=== PATIENT | female | born 1955 | race Caucasian/White ===

== ENCOUNTER 2019-06-26 09:55 | Observation (INO) | payer BC ==
[~2019-06-26] VITALS: Ht 162.6 cm; Wt 79.8 kg
[2019-06-26] MEDS ORDERED: SYNTHROID100 MCG PO (12:18)
[2019-06-26] MEDS ORDERED: ASPIR 8181 MG PO (12:19)
--- NOTE | 2019-06-26 15:47 | NUR ---
PT APPEARS TO BE SLEEPING AT THIS TIME, HELD OFF VISITORS AT THIS TIME.
--- NOTE | 2019-06-26 16:06 | NUR ---
MEDICATED WITH 650MG TYLENOL PO AT THIS TIME FOR MOHAN DUE TO COUGHING.
--- NOTE | 2019-06-26 16:37 | NUR ---
pt ambulated to the bathroom some sob noted with this activity, back to bed remains on 1l via nc at this time. spo2 94%.
--- NOTE | 2019-06-26 17:49 | EKG ---
[facility] [address] [facility] [place] [address] Signed Normal sinus rhythm Possible Left atrial enlargement Cannot rule out Anterior infarct , age undetermined Abnormal ECG No previous ECGs available Confirmed by RUTH ANN RAMIREZ MD ([id number]) on 06/26/2019 5:49:30 PM Electronically Signed By: RUTH ANN RAMIREZ MD 06/26/19 1749 PATIENT NAME: PARAMJIT NIELSON SATISH Electrocardiogram DATE OF : 53 PHYSICIAN: RUTH ANN RAMIREZ MD REPORT #: [id number] REPORT IS CONFIDENTIAL AND NOT TO BE RELEASED WITHOUT AUTHORIZATION
--- NOTE | 2019-06-26 18:13 | NUR ---
PT IS COUGHING LESS WITH THE MUCINEX. PT CONTIOUES TO WORK ON EATTING DINNER AT THIS TIME, AND IS WATCHING TV AT THIS TIME. HAS NO C/O'S AT THIS TIME.
--- NOTE | 2019-06-26 18:29 | NUR ---
COUGHING HAS INCREASED THEREFORE ROBITUSSIN GIVEN AT THIS TIME. PT CONTIOUES TO WORK ON EATTING HER DINNER.
--- NOTE | 2019-06-26 19:51 | NUR ---
SHIFT REPORT RECEIVED FROM MONIQUE BRAR. IN TO CHECK IN ON PT AT THIS TIME AND REVIEW PLAN OF CARE FOR TONIGHT. PT DENIES NEEDS AT THIS TIME, WILL CONTINUE TO MONITOR.
--- NOTE | 2019-06-26 20:42 | NUR ---
ASSESSMENT COMPLETED, SEE-DOCUMENTATION. SCHEDULED EVENING MEDICATIONS, DISCUSSED PLAN FOR PRN MEDICATIONS FOR COUGH AND HEADACHE. PT REMAINS ON 1L O2 VIA NC. LUNG SOUNDS COARSE, WHEEZES NOTED, WILL COORDINATE CARE WITH R.T. FOR NEBS. PT HAS FINISHED WITH HER DINNER, ATE ~50%. DENIES NEEDS AT THIS TIME, CALL LIGHT WITHIN REACH.
--- NOTE | 2019-06-26 22:05 | NUR ---
PRN MEDICATIONS GIVEN FOR COUGH, HEADACHE, AND SLEEP. PT UP TO BATHROOM WI SBA, VOIDED 250ML AND RETURNED TO BED. SHE DENIES FURTHER REQUESTS AT THIS TIME, CALL LIGHT REMAINS WITHIN REACH.
--- NOTE | 2019-06-27 00:38 | NUR ---
ASSESSMENT COMPLETED-SEE DOCUMENTATION. PT STATES HER HEADACHE PAIN IS IMPROVED SINCE RECEIVING TYLENOL. LUNG SOUNDS REMAIN COARSE WITH EXPIRATORY WHEEZES ON THE RIGHT SIDE, 1L O2 VIA NC IN PLACE. PT AMBULATED TO BATHROOM WITH SBA TO VOID AND RETURNED TO BED. PT SOB WITH ACTIVITY. DISCUSSED PLAN FOR PRN COUGH MEDICATIONS. PT DENIES FURTHER REQUESTS AT THIS TIME. CALL LIGHT WITHIN REACH.
--- NOTE | 2019-06-27 04:40 | NUR ---
ASSESSMENT COMPLETED-SEE DOCUMENTATION. PT REPORTS 6/10 HEADACHE PAIN, PRN TYLENOL GIVEN. DISCUSSED PLAN FOR PRN COUGH MEDICINE AT 0600. PT UP TO BATHROOM WITH SBA TO VOID AND THEN BACK TO BED. PT REPORTS SOB WITH ACTIVITY. BREATHING TREATMENT REQUESTS, R.T. NOTIFIED. IV REMAINS PATENT, INFUSING WNL. FRESH ICE WATER PROVIDED, NO FURTHER REQUESTS AT THIS TIME.
--- NOTE | 2019-06-27 08:31 | NUR ---
PT AMBULATED TO BATHROOM ON HER OWN, DID WELL WITH THIS PROCESS, BUT CONTIOUES TO BE SOB SITTING AT EDGE OF BED TO CATCH HER BREATH.
--- NOTE | 2019-06-27 09:29 | NUR ---
PT HAD EMINES ABOUT 200MLS ZOFRAN 4MG IVP GIVEN, PT HAVING EMINES DUE TO COUGHING.
--- NOTE | 2019-06-27 12:08 | NUR ---
PT SITTING UP IN THE CHAIR AT THIS TIME, TRYING TO EAT LUNCH. SON AT THE BEDSIDE.
--- NOTE | 2019-06-27 13:03 | NUR ---
PT HAS BEEN UP IN THE CHAIR EATTING LUNCH, KATTY-FAIR SO FAR AND THEN UP TO BATHROOM FOR ADLS.
--- NOTE | 2019-06-27 14:20 | NUR ---
PT WAS UP IN THE CHAIR DID HER OWN ADLS AND THEN BACK TO BED. KEN YBARRA GIVEN. AND PT IS WANTING TO TAKE A NAP.
--- NOTE | 2019-06-27 17:41 | NUR ---
PT SITTING UP IN THE CHAIR AT THIS TIME, EATING DINNER AT THIS TIME.
--- NOTE | 2019-06-27 18:27 | NUR ---
PT BACK TO BED. KATTY-DINNER AT THIS TIME.
--- NOTE | 2019-06-27 19:30 | NUR ---
REPORT RECIEVED FROM CCU RN, CARE OF PATIENT ASSUMED AT THIS TIME.
--- NOTE | 2019-06-27 19:32 | NUR ---
PT REPORT RECIEVED FROM CCU RN, CARE OF PATIENT ASSUMED AT THIS TIME.
--- NOTE | 2019-06-27 20:00 | NUR ---
IN ROOM FOR ASSESSMENT. PT STATES SHE IS FEELING BETTER THAN SHE DID THIS AM. STATES COUGH HAS BECOME LESS FREQENT. LUNGS SOUND COARSE THROUGHOUT WITH SCATTERED EXPIRATORY WHEEZES. PLAN OF CARE FOR EVENING DISCUSSED. CALL LIGHT WITH REACH. NO FURTHER NEEDS AT THIS TIME.
--- NOTE | 2019-06-27 21:00 | NUR ---
IN ROOM FOR MEDICATION ADMINSITRATION. PT GIVEN PRN MEDICATION FOR COUGH (SEE EMAR). PLAN TO GIVE SLEEPING PILL AT 2200. WATER REFILLED, CALL LIGHT WITHIN REACH, NO FURTHER NEEDS AT THIS TIME.
--- NOTE | 2019-06-27 23:00 | NUR ---
PATIENT APPEARS TO BE SLEEPING SOUNDLY. O2 SAT >95% ON ROOM AIR.
--- NOTE | 2019-06-28 02:25 | NUR ---
PATIENT PROVIDED WITH PRN TYLENOL FOR HEADACHE PAIN 10/10. ALSO PROVIDED WITH COUGH MEDICATION. PATIENT DENIES OTHER NEEDS. RESTING IN BED. CALL LIGHT IN REACH.
--- NOTE | 2019-06-28 06:51 | NUR ---
PATIENT PROVIDED WITH MORNING MEDS. TITRATED TO ROOM AIR. LUNGS ARE CLEAR. CONTINUES TO HAVE DRY COUGH WITH OCCATIONAL SPUTUM PRODUCTION. PATIENT REPORTS IMPROVED MOHAN. VS STABLE. NO NAUSEA AT THIS TIME. BREAKFAST ORDER RECEIVED.
--- NOTE | 2019-06-28 08:06 | NUR ---
Recieved Pt report from medical appointment clerk. Pt is alert and oriented sitting in her chair. Assessment completed. Lung manriquez clear to ascultation, cough congested/dry. Pt eating breakfast in her chair, call light within reach will continue to monitor.
--- NOTE | 2019-06-28 08:36 | NUR ---
Pt morning medications given, Pt requested a shower, sitting in chair eating breakfast , call light within reach will continue to monitor.
--- NOTE | 2019-06-28 08:42 | NUR ---
PATIENT SITTING UP IN THE CHAIR RELAXING AND EATING BREAKFAST AT THIS TIME. BLINDS OPENED FOR PATIENT PER REQUEST. MEDICATIONS GIVEN. VITALS COMPLETED. ASSESSMENT DONE. PATIENT HAS AN EXP WHEEZE IN LOWER RIGHT LOBE. PRN COUGH MEDICINE PROVIDED. WILL CONTINUE TO CLOSELY MONITOR.
--- NOTE | 2019-06-28 09:40 | NUR ---
Spoke with Macy. She denies needs to go home. She does not have a nebulizer and I will notify Dr. Washington. Pt states pneumonia has taken it out of her.
--- NOTE | 2019-06-28 10:00 | NUR ---
Pt is resting in bed, 0900 abx given, Pt will shower after IV fluids completed. Guardrails are up, call light within reach will continue to monitor.
--- NOTE | 2019-06-28 10:59 | NUR ---
Pt in bed engaging in coranet breathing excerises. Pt appears SOB w/exertion while using the coranet and talking. Pt went to [facility] w/[facility]UER to shower in rm 125. Lunch has been ordered. Will continue to monitor when Pt returns to CCU.
--- NOTE | 2019-06-28 11:28 | NUR ---
PATIENT BACK FROM THE SHOWER WITH FIRER LOCOMOTIVE CRANE. PATIENT TOELRATED WELL. BEDDING CHANGED. LUNCH ORDERED. PATIENT CONTINUES WITH OCCASIONAL COUGH. WILL CONTINUE TO CLOSELY MONITOR.
--- NOTE | 2019-06-28 11:30 | NUR ---
MD Washington at Pt bedside. is going to keep Pt another day for observation, Pt Sp02 decreased to 90% after shower. Pt report exhaustion and SOB. RUL-FENG/Clear, RLL-LLL/inspiratory wheezes w/asculation. Felix requested to continue Pt on IV abx. and neb tx. Assessment completed. Pt SOB while talking. Resting in bed guardrails are up, call light is within reach, Pt eating lunch, will continue to monitor.
--- NOTE | 2019-06-28 13:52 | NUR ---
PATIENT WAS ADMITTED AT HIGH RISK FOR MALNUTRITION DUE TO RECENT POOR APPETITE DUE TO NOT FEELING WELL. SHE HAS BEEN TAKING MY WEIGHT MANAGEMENT CLASS AND HAS BEEN WORKING ON EATING HEALTHIER AND EXERCISING OVER THE PAST YEAR. BMI 30. PATIENT ON REGULAR DIET. NO FURTHER INTERVENTIONS AT THIS TIME.
--- NOTE | 2019-06-28 14:15 | NUR ---
Pt SCD's where taken off Pt ambulated to the [facility], Pt requested the SCD's not be put back on when she return bed. Pt is resting in bed, guardrails up, call light within reach. Will continue to monitor.
--- NOTE | 2019-06-28 15:51 | NUR ---
PATIENT RESTING IN BED TAKING A NAP AT THIS TIME. PATIENT SPO2 95% ON RA. WILL CONTINUE TO CLOSELY MONITOR.
--- NOTE | 2019-06-28 17:43 | NUR ---
Pt is sitting in her chair eating dinner, she reports feeling alot better than she did the previous evening and feels like she can eat her meal tonight, 1600 assessment completed. RUL/FENG clear , RLL/LLL-inspiratory and exspiratory wheezes. Call light is within reach will continue to monitor.
--- NOTE | 2019-06-28 20:46 | NUR ---
O2 MONITOR NOT READING. FIXED. pt RESTING IN BED. STATED SHE WAS "DONING WELL, I JUST FINISHED A BREATHING TREATMENT" NO REQUESTS AT THIS TIME. UPDATED ON PLAN OF CARE. CALL LIGHT WITHIN REACH. WHITEBOARD UPDATED.
--- NOTE | 2019-06-28 21:13 | NUR ---
ASSESSMENT DONE, MEDICATION GIVEN (SEE MAR). pt REQUESTED THAT HER PRN MEDICATIONS BE GIVEN AT 2200. pt REPORTED SOB WHEN AMBULATING. PROVIDED ICE CHIPS. NO FURTHER REQUESTS AT THIS TIME. CALL LIGHT WITHIN REACH.
--- NOTE | 2019-06-28 22:07 | NUR ---
PRN MEDICATIONS GIVEN (SEE MAR). NO FURTHER REQUESTS AT THIS TIME. CALL LIGHT WITHIN REACH.
--- NOTE | 2019-06-28 23:49 | NUR ---
pt UP TO VOID. REQUESTED PRN MED, GIVEN (SEE MAR). NO FURTHER REQUESTS AT THIS TIME. CALL LIGHT WITHIN REACH.
--- NOTE | 2019-06-29 02:28 | NUR ---
ROUNDED ON pt. RESTING WITH EYES CLOSED, RESPIRATIONS REGULAR. CALL LIGHT WITHIN REACH.
--- NOTE | 2019-06-29 03:55 | NUR ---
pt UP TO VOID, INDEPENDENT IN ROOM. CALL LIGHT WITHIN REACH.
--- NOTE | 2019-06-29 05:39 | NUR ---
VITALS AND I&O RECORDED. ASSESSMENT DONE. IMPROVEMENT IN LUNG SOUNDS FROM PRIOR ASSESSMENT. WATER AND ICE PROVIDED. MEDICATIONS GIVEN (SEE MAR). NO FURTHER REQUESTS AT THIS TIME. CALL LIGHT WITHIN REACH.
--- NOTE | 2019-06-29 08:00 | NUR ---
Report recieved by shift superintendent caustic cresylate. Pt resting in bed. Reports she had a good night and slept well. Assessment completed. Upper and lower lungs sounds coarse. Breakfast has been ordered, Pt amubualted to her chair independrntly. Call light is within reach , will continue to monitor.
--- NOTE | 2019-06-29 09:00 | NUR ---
PATIENT UP AND AWAKE THIS AM. PATIENT DENIES ANY COUGH MEDICATIONS AT THIS TIME. ASSESSMENT COMPLETED. NO OTHER NEEDS AT THIS TIME.
[2019-06-29] MEDS ORDERED: CEFPODOXIME PR200 MG PO (10:05)
[2019-06-29] MEDS ORDERED: BENZONATATE100 MG PO (10:05)
[2019-06-29] MEDS ORDERED: GUAIFEN-CODEINE10 ML PO (10:07)
[2019-06-29] MEDS ORDERED: LC D NEBULIZER1 EAC1 MISC (10:10)
[2019-06-29] MEDS ORDERED: ALBUTEROL2.5 MG/3 M INH (10:11)
--- NOTE | 2019-06-29 10:32 | NUR ---
Pt is dressed and ready for discharge. Requested her IV be removed. IV was Dc'd and intact. MD EDWARDS prepared discharge orders. Pt sitting in chair call light with in reach , will continue to monitor.
--- NOTE | 2019-06-29 10:37 | NUR ---
DR EDWARDS WROTE ORDER FOR PT TO HAVE A NEBULIZER. SPOKE WITH PT, SHE STATES SHE WOULD LIKE TO GET THE NEBULIZER FROM [facility]. FAXED CHART NOTES TO [facility]. SENT FACESHEET, ORDER, H AND P, PROG NOTES. RECEIVED FAX CONFIRMATION. 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
--- NOTE | 2019-06-29 10:45 | NUR ---
PATIENT READY TO DISCHARGE HOME. APPOINTMENT MADE FOR PATIENT FOR FOLLOW-UP. WORK RELEASE GIVEN TO PATIENT. NO OTHER NEEDS AT THIS TIME. WILL CONTINUE TO CLOSELY MONITOR.
--- NOTE | 2019-06-29 11:20 | NUR ---
PATIENT DISCHARGED HOME WITH FAMILY. ALL BELONGINGS GATHERED AND SENT WITH PATIENT. PATIENT WHEELED OUT OF UNIT WITH STAFF MEMBER. ALL DISCHAGE EDUCATION REVIEWED. MEDICATIONS SENT TO THE PHARMACY AND ORDER FOR A NEBULIZER WAS SENT BY CASE MANAGEMENT. NO FURTHER QUESTIONS. IV DCD WITH NO ISSUES.
--- NOTE | 2019-06-29 11:38 | NUR ---
Pt education was given to Pt upon discharge. Pt agreed to follow-up with tx recommedations, follow up appointment made with Pt's PCP 07/05/19. Pt's son w/her during discharge.
--- NOTE | 2019-06-29 11:57 | NUR ---
PT DRESSED, SITTING IN CHAIR,WAITING FOR HER SON TO TAKE HER HOME. PT MENTIONED THAT SHE IS FEELING MUCH BETTER AND THAT SHE HAS HAD A GOOD EXPERIENCE WITH ALL PHASES OF HER CARE WHILE AT [facility]. GAVE PT A G.POST EXTENDED A BLESSING. WILL FOLLOW NEEDED
== END 2019-06-29 11:20 | disposition home or self-care (01) ==
LOC: ED 09:55 → CCU 09:56
PROVIDERS: ADMIT Internal Medicine
DX: J18.9 Pneumonia, unspecified organism (principal); J98.01 Acute bronchospasm; E03.9 Hypothyroidism, unspecified; Z88.8 Allergy status to other drugs, medicaments and biological substances; Z79.82 Long term (current) use of aspirin; Z79.899 Other long term (current) drug therapy
CPT/HCPCS: 36415; 71046; 80048; 80053; 83605; 83880; 84484; 85025; 85379; 87040; 93005; 93010; 94640; 94667; 94668; 94760; 96366; 96374; 96376; 99285-25; G0378; J0456; J0696; J2405; J7030; J7060

== ENCOUNTER 2021-01-20 10:15 | Emergency (ER) | payer BC ==
[~2021-01-20] VITALS: Ht 162.6 cm; Wt 79.8 kg
[~2021-01-20 10:15] MED LIST: ALBUTEROL2.5 MG/3 M INH; ASPIR 8181 MG PO; BENZONATATE100 MG PO; CEFPODOXIME PR200 MG PO; GUAIFEN-CODEINE10 ML PO; LC D NEBULIZER1 EAC1 MISC; SYNTHROID100 MCG PO
[2021-01-20] MEDS ORDERED: PROMETH-CODEIN 65 ML PO (15:17)
--- NOTE | 2021-01-21 02:21 | EKG ---
[facility] [address] [facility] [place], [place] [address] Signed Normal sinus rhythm Septal infarct (cited on or before 26-JUN-2019) Abnormal ECG When compared with ECG of 26-JUN-2019 10:01, No significant change was found Confirmed by BRODIE EDWARDS MD ([id number]) on 01/21/2021 2:21:30 AM Electronically Signed By: BRODIE EDWARDS MD 01/21/21220 PATIENT NAME: PARAMJIT NIELSON SATISH Electrocardiogram DATE OF : 53 PHYSICIAN: BRODIE EDWARDS MD REPORT #: [id number] REPORT IS CONFIDENTIAL AND NOT TO BE RELEASED WITHOUT AUTHORIZATION
== END 2021-01-20 15:20 | disposition designated cancer center or children's hospital (05) ==
LOC: ED 10:15
DX: U07.1 COVID-19 (principal); G47.30 Sleep apnea, unspecified; Z88.8 Allergy status to other drugs, medicaments and biological substances; Z79.899 Other long term (current) drug therapy
CPT/HCPCS: 71045; 80053; 83690; 83735; 84484; 85025; 93005; 93010; 99285-25; C9803; M0243; Q0244; U0003

== ENCOUNTER 2024-12-28 05:49 | Day surgery (SDC) | payer BC ==
[~2024-12-28] VITALS: Ht 162.6 cm; Wt 78.0 kg
[~2024-12-28 05:49] MED LIST changes: +HYDROCODON-ACE1 EA10 PO; +LACTATED RINGER'S 1,000 ML IV SCH; +PENICILLIN V P500 MG PO; +PROMETH-CODEIN 65 ML PO
[2024-12-28 06:00] VITALS: BP 137/76
[2024-12-28] MEDS ORDERED: IBLOOD GLUCOSE TEST STRIP 1 EA TEST VI PRN (07:00)
[2024-12-28] MEDS ORDERED: LIDOCAINE HCL 1% 5 ML SDV INJ ONE (07:00)
[2024-12-28] MEDS ORDERED: LIDOCAINE HCL 2% 5 ML SDV ONE (07:03)
[2024-12-28] MEDS ORDERED: KETOROLAC TROMETHAMINE 30 MG/ML VIAL ONE (07:57)
--- NOTE | 2024-12-28 08:27 | NUR ---
12/28/24 0827 Armond Paul 0819: PT ARRIVED TO PACU VIA STRETCHER. PT NON AROUSABLE AT THIS TIME. PT ON 2L NC SATS IN THE HIGH 90'S.
[2024-12-28 08:47] VITALS: BP 107/81
--- NOTE | 2024-12-30 14:10 | OR ---
[facility] [address] [place], [place] [address] Signed DATE OF OPERATION: 12/28/2024 SURGEON: Nikko Perales MD PREOPERATIVE DIAGNOSES: 1. History of Patel-en-Y gastric bypass. 2. History of recurrent severe diverticulitis and concurrent urinary tract infection. POSTOPERATIVE DIAGNOSES: 1. Normal upper endoscopy including gastric pouch and Patel limb. 2. Diverticular changes of sigmoid and left colon and small polyp of rectum. PROCEDURES: 1. Upper endoscopy including evaluation of Patel-en-Y limb. 2. Total colonoscopy to cecum with cold morcellation polypectomy x1 and biopsy of rectum. ANESTHESIA: Intravenous sedation, propofol infusion, Daphne Lucas CRNA. 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 She is a patient of TAISHA Yuen. She is referred for a colonoscopy following treatment for significant diverticulitis episode. She does have concurrent other problems including underlying bladder prolapse problem, probable cystocele, and recurrent urinary tract infections. She is uncertain as to having had pneumaturia; notably, she has had hysterectomy in the past. A CT scan performed at [facility] dated October 31, 2024 showed findings of hysterectomy from the past, moderate bladder wall thickening and perivesicular fat and stranding and showing sigmoid diverticulosis with fat stranding and an inflamed distal sigmoid with diverticulitis. There was no evidence of air in the bladder on that evaluation. Additionally, the patient has had cholecystectomy in the past and has had gastric bypass operation (Patel-en-Y gastric bypass). She does not have dysphagia. Does have some dyspepsia from time to time. She is admitted at this time to undergo upper endoscopy and colonoscopy. She understands the risk of bleeding, infection, perforation. FINDINGS: Upper endoscopy showed normal esophagus and gastric pouch remnant. There was no sign of peristomal ulceration or stricture. Biopsies were taken of the stomach for both CHALINO and pathologic testing. Retroflexed view showed a poor flap valve. The esophagus itself Electronically Signed By: NIKKO PERALES MD 12/30/24 1410 PATIENT NAME: PARAMJIT NIELSON OPERATIVE REPORT DATE OF : 53 REPORT #: [id number] PHYSICIAN: NIKKO PERALES MD PCP: SUKHDEEP KEMP PAC REPORT IS CONFIDENTIAL AND NOT TO BE RELEASED WITHOUT AUTHORIZATION [facility] [address] [place], [place] [address] Signed showed no sign of esophagitis. On colonoscopy, the prep was good. Complete colonoscopy was undertaken of the cecum. There was a small polyp of the rectum, which was excised. Dense diverticular changes were noted of the sigmoid. Her colon was somewhat "stiff." It is noted. There were no findings of concern otherwise. DESCRIPTION OF PROCEDURE: The patient was brought to the endoscopy suite and placed in lateral decubitus position, given intravenous sedation with propofol infusional technique. A bite block was placed. An Olympus video upper endoscope was passed in the hypopharynx. The vocal cords were normal. The scope was easily passed in the esophagus throughout its length and it was normal. Scope entered the gastric pouch, which was small as would be expected. The gastrojejunal anastomosis was widely patent. The jejunal limb was passed a reasonable distance showing no sign of angulation deformity, stricture or other problem. The scope was withdrawn and biopsies taken of the gastric pouch for both CHALINO and pathologic testing. Retroflexed view showed a somewhat loose flap valve, but no other abnormality otherwise. The scope was withdrawn. A biopsy was taken of the distal esophagus in the mid esophagus. Scope was then withdrawn and removed. Plans were then made for colonoscopy. Digital rectal examination was normal. An Olympus video colonoscope was passed in the rectum and manipulated into the sigmoid, which had dense diverticular changes. Passage through this area was slightly challenging, though there was no acute inflammation that could be seen. Various maneuvers were made to pass beyond the sigmoid, ultimately to the cecum. Ileocecal valve and appendiceal orifice were normal. The scope was withdrawn from that point and examination throughout showed no sign of abnormality until the left colon where diverticular changes were seen once again. The area within the sigmoid was once again viewed showing no sign of acute inflammation or actual stricture, though the area appeared stiffened. The scope was withdrawn in the rectum. A small polyp was noted. This was excised with cold morcellation technique. A biopsy was taken of the normal-appearing rectum as reference for occult inflammation or not. The patient was taken to the recovery room in good condition. CONCLUDING DIAGNOSES: 1. Essentially normal upper endoscopy. 2. Diverticular changes of the sigmoid and small polyp of rectum. PLAN: Would recommend repeat colonoscopy in 10 years based on current guidelines. I will follow up on a urinalysis that was obtained preoperatively to assure there is no Electronically Signed By: NIKKO PERALES MD 12/30/24 1410 PATIENT NAME: PARAMJIT NIELSON OPERATIVE REPORT DATE OF : 53 REPORT #: [id number] PHYSICIAN: NIKKO PERALES MD PCP: SUKHDEEP KEMP PAC REPORT IS CONFIDENTIAL AND NOT TO BE RELEASED WITHOUT AUTHORIZATION [place] [phone] Signed evidence of urinary tract infection at this time. It is unlikely that she does have a colovesical fistula, though she is at increased risk for that given her diverticular disease and prior hysterectomy and recurrent urinary tract infection and ambiguity regarding certainty regarding pneumaturia. She will follow up with TAISHA Yuen as well. MD WILBERT Canseco/HUEY /[id number] cc: Julian Copies: ~ Electronically Signed By: NIKKO PERALES MD 12/30/24 1410 PATIENT NAME: PARAMJIT NIELSON ELSA OPERATIVE REPORT DATE OF : 53 REPORT #: [id number] PHYSICIAN: NIKKO PERALES MD PCP: SUKHDEEP KEMP PAC REPORT IS CONFIDENTIAL AND NOT TO BE RELEASED WITHOUT AUTHORIZATION
--- NOTE | 2025-01-02 17:18 | PATH ---
[facility] [address], [place] [address] Signed SPECIMEN(S): A GASTRIC POUCH BIOPSY SPECIMEN(S): B LOWER ESOPHAGEAL BIOPSY SPECIMEN(S): C MIDDLE ESOPHAGEAL BIOPSY SPECIMEN(S): D RECTUM BIOPSY SPECIMEN(S): E RECTAL POLYP SPECIMEN SOURCE: A. GASTRIC POUCH BIOPSY B. LOWER ESOPHAGEAL BIOPSY C. MIDDLE ESOPHAGEAL BIOPSY D. RECTUM BIOPSY E. RECTAL POLYP CLINICAL HISTORY: Dysphagia, recent diverticulitis FINAL PATHOLOGIC DIAGNOSIS: A. Gastric pouch, biopsy: - Acid secreting gastric mucosa. - Negative for chronic, acute, and active inflammation. - No H. pylori-like organisms identified on routine HE-stained histologic sections. - Negative for intestinal metaplasia, dysplasia, and malignancy. B. Lower esophagus, biopsy: - Gastroesophageal junctional-type mucosa. - Squamous component with moderate chronic (lymphocytic) inflammation; compatible with lymphocytic esophagitis. - No acute or eosinophilic inflammation identified. - Glandular component with mild chronic inflammation in the lamina propria. - Negative for intestinal metaplasia, dysplasia, and malignancy. C. Middle esophagus, biopsy: - Stratified squamous esophageal mucosa with mild congestion in the rete peg vessels and mild chronic (lymphocytic) inflammation in the lower one third of the epithelium. - No acute or eosinophilic inflammation identified. - Negative for dysplasia and malignancy. D. Rectum, biopsy: - Rectal mucosa with normal glandular architecture. - Slight, nonspecific chronic inflammation is present in the superficial aspect of the mucosa. PATIENT NAME: PARAMJIT NIELSON PATHOLOGY DATE OF : 53 REPORT #: [id number] PHYSICIAN: CARLIN MAYFIELD PCP: SUKHDEEP KEMP PAC REPORT IS CONFIDENTIAL AND NOT TO BE RELEASED WITHOUT AUTHORIZATION [facility] [address], [place] [address] Signed - Negative for acute crypt abscesses, acute cryptitis, and granulomas. - Subepithelial collagen layer is normal in thickness. - Negative for dysplasia and malignancy. E. Rectal polyp, biopsy: - Hyperplastic polyp. - Negative for dysplasia and malignancy. COMMENT: Specimen B - The lymphocytic esophagitis pattern of injury can be seen in association with gastroesophageal reflux disease, achalasia, and medication induced esophagitis. Correlation with the patient's symptoms and endoscopic examination results is recommended. SDL MICROSCOPIC EXAMINATION: Histologic sections of all submitted blocks are examined by light microscopy. These findings, together with the gross examination, support the pathologic diagnosis. GROSS DESCRIPTION: A. The specimen, labeled and designated "Ilg, gastric pouch biopsy," is received in formalin and consists of two rios soft tissue fragments, ranging from 0.3-0.8 cm. Entirely submitted in (A1). B. The specimen, labeled and designated "Ilg, lower esophageal biopsy," is received in formalin and consists of two rios soft tissue fragments, ranging from 0.3-0.4 cm. Entirely submitted in (B1). C. The specimen, labeled and designated "Ilg, middle esophageal biopsy," is received in formalin and consists of two rios soft tissue fragments, ranging from 0.3-0.5 cm. Entirely submitted in (C1). D. The specimen, labeled and designated "Ilg, rectum biopsy," is received in formalin and consists of two rios soft tissue fragments, ranging from 0.2-0.4 cm. Entirely submitted in (D1). E. The specimen, labeled and designated "Ilg, rectal polyp," is received in formalin and consists of one rios soft tissue fragment, 0.3 cm. Entirely submitted in (E1). VB (under the direct supervision of a pathologist) The Gross Description was prepared using a voice recognition system. The report was reviewed for accuracy; however, sound-alike word errors, addition and/or deletions may occur. If there are any questions about this report, please contact Client Services. PATIENT NAME: PARAMJIT NIELSON PATHOLOGY DATE OF : 53 REPORT #: [id number] PHYSICIAN: CARLIN MAYFIELD PCP: SUKHDEEP KEMP PAC REPORT IS CONFIDENTIAL AND NOT TO BE RELEASED WITHOUT AUTHORIZATION [facility] [address], [place] [address] Signed ADDITIONAL NOTES: Immunohistochemical and/or in situ hybridization studies if performed in this case included appropriate positive controls that reacted as expected. This test was developed and its performance characteristics determined by [facility]. It has not been cleared or approved by the U.S. Food and Drug Administration. The FDA has determined that such clearance or approval is not necessary. This test is used for clinical purposes. It should not be regarded as investigational or for research. [facility] is certified under the Clinical Laboratory Improvement Amendments of 1988 (CLIA) as qualified to perform high complexity clinical laboratory testing. PERFORMING LABORATORY: Technical component was performed by [facility], [address] [place] [id number] (CLIA# [id number]). Professional interpretation was performed by [facility], [address] [place] [address], [place] [address] (CLIA#: [id number]). Diagnostician: Luba Harris MD Pathologist Electronically Signed 01/02/2025 Copies: ~ PATIENT NAME: PARAMJIT NIELSON [facility] DATE OF : 53 REPORT #: [id number] PHYSICIAN: CARLIN PATHOLOGY PCP: SUKHDEEP KEMP PAC REPORT IS CONFIDENTIAL AND NOT TO BE RELEASED WITHOUT AUTHORIZATION
== END 2024-12-28 08:55 | disposition home or self-care (01) ==
LOC: DS 05:49
PROVIDERS: ATTEND Surgery
PROC: 0DB28ZX Excision of Middle Esophagus, Via Natural or Artificial Opening Endoscopic, Diagnostic (ICD-10-PCS; 2024-12-28)
PROC: 0DBP8ZX Excision of Rectum, Via Natural or Artificial Opening Endoscopic, Diagnostic (ICD-10-PCS; principal; 2024-12-28 07:30)
PROC: 0DB38ZX Excision of Lower Esophagus, Via Natural or Artificial Opening Endoscopic, Diagnostic (ICD-10-PCS; 2024-12-28 07:30)
DX: K57.30 Diverticulosis of large intestine without perforation or abscess without bleeding (principal); K20.80 Other esophagitis without bleeding; K62.1 Rectal polyp; K62.89 Other specified diseases of anus and rectum; N39.0 Urinary tract infection, site not specified; E03.9 Hypothyroidism, unspecified; Z87.19 Personal history of other diseases of the digestive system; Z79.890 Hormone replacement therapy; Z88.8 Allergy status to other drugs, medicaments and biological substances; Z90.49 Acquired absence of other specified parts of digestive tract; Z90.710 Acquired absence of both cervix and uterus; Z98.84 Bariatric surgery status
CPT/HCPCS: 00813; J1885; J2003; J2405; J2704